=== PATIENT | female | born 1965 | race Caucasian/White ===

== ENCOUNTER 2018-06-11 17:47 | Emergency (ER) | payer OTHER ==
[~2018-06-11] VITALS: Ht 154.9 cm; Wt 58.1 kg
[2018-06-11 18:10] LABS: BASOPHILS 0.4 % (0.0-2.0); EOSINOPHILS 0.7 % (0.0-3.0); HEMATOCRIT 40.2 % (37.0-47.0); HEMOGLOBIN 13.6 gm/dL (12.0-15.0); LYMPHOCYTES 12.1 % (24.0-44.0); MCH 29.6 pg (26.0-34.0); MCHC 33.9 g/dL (28.0-37.0); MCV 87.3 fL (80.0-100.0); MONOCYTES 5.2 % (1.0-8.0); PLATELET COUNT 195 thou/uL (150-400); POLYS 81.6 % (36.0-66.0); RBC 4.61 mil/uL (4.20-5.00); RDW 13.8 % (10.5-14.5); WBC 9.8 thou/uL (4.0-11.0)
[2018-06-11 18:15] LABS: ANION GAP 9 mmol/L (7-16); BUN 14 mg/dL (7-18); CALCIUM 9.1 mg/dL (8.5-10.1); CHLORIDE 102 mmol/L (98-107); CO2 29 mmol/L (21-32); CREATININE 0.8 mg/dL (0.6-1.0); GLUCOSE 105 mg/dL (74-106); POTASSIUM 3.8 mmol/L (3.5-5.1); SODIUM 140 mmol/L (136-145)
[2018-06-11 18:24] LABS: TROPONIN-I <0.06 ng/mL (<0.06)
[2018-06-11 19:23] LABS: BE(vivo) 0.1 mmol/L (-2 to +3); HCO3 26.3 mmol/L (22.0-26.0); PCO2 48.5 mmHg (35.0-45.0); PO2 59.4 mmHg (80.0-100.0); pH 7.352 (7.360-7.450); sO2 89.4 % (92.0-98.0)
[2018-06-11 21:31] VITALS: BP 127/60
--- NOTE | 2018-06-12 07:17 | EKG ---
[place] [address] [address] [facility] [place] [address] ELECTROCARDIOGRAM REPORT Name: KIA SIFUENTES Room #: DEP Mckenna#: [id number] ������������������ Admission: 06/11/18 ������������������ Attend Phys: Discharge: 06/11/18 ������������������ Date of : 65 Report #: [id number] ����������������������������������������������������������������� [id number] THIS REPORT FOR: //name// [facility] ED Test Date: 2018-06-11 Test Time: 17:49:27 Pat Name: KIA SIFUENTES Department: Room: Gender: F Personal Insurance Advisor: [facility] : 1965 Requested By: Yasir Pascual Order Number: [id number] MD: Diaz Ellis Measurements Intervals [place] Rate: 81 P: 71 MN: 137 QRS: 25 QRSD: 109 T: 60 QT: 387 QTc: 450 Interpretive Statements Sinus rhythm Poor R wave progression No previous ECG available for comparison Electronically Signed On 06-12-2018 7:17:06 CDT by Diaz Ellis [email or web address] ��������������������������������������������� <ELECTRONICALLY SIGNED> ���������������������������������������� By: Diaz Ellis MD, [facility] ��������������������������������������������� 06/12/18 0717 1749 1749 Diaz Ellis MD, FACC /EPI
== END 2018-06-11 22:21 | disposition home or self-care (01) ==
LOC: ER 17:47
PROVIDERS: Emergency Medicine
DX: R07.89 Other chest pain (principal); R68.84 Jaw pain; R20.0 Anesthesia of skin; Z88.8 Allergy status to other drugs, medicaments and biological substances; Z88.0 Allergy status to penicillin